=== PATIENT | male | born 1945 | race Caucasian/White ===

== ENCOUNTER 2020-10-15 11:38 | Emergency (ER) | payer MEDICARE, OTHER, SELFPAY ==
[2020-10-15 12:13] VITALS: BMI 28.5
--- NOTE | 2020-10-15 12:16 | XRR_ITS ---
PROCEDURE INFORMATION: Exam: XR Left Hand Exam date and time: 10/15/2020 12:16 PM Age: 75 years old Clinical indication: Injury or trauma; Other: Trailer hitch came down on hand today; Crushing; Left; Injury date: 10/15/20; Prior surgery; Surgery type: Carpal tunnel; Additional info: Crush injury to hand TECHNIQUE: Imaging protocol: XR Left hand. Views: 3 or more views. COMPARISON: No relevant prior studies available. FINDINGS: Bones/joints: There is no evidence for acute fracture or malalignment. Soft tissues: There is soft tissue injury adjacent to the left 2nd metacarpal head.No concerning radioopaque foreign bodies are identified. XR/XR hand LT min 3V* [id number] IMPRESSION: There is no evidence for acute fracture or malalignment.
--- NOTE | 2020-10-15 12:18 | W.ED.WOUNDLC ---
HPI - Wound/Laceration General: Chief Complaint: Wound/Laceration Stated Complaint: L hand LAC R hand pain Time Seen by Provider: 10/15/20 12:10 Source: patient Mode of arrival: ambulatory Limitations: no limitations History of Present Illness: HPI narrative: 75-year-old male had a tito under his camper and when he was trying to remove the tito the camper fell and landed on his hands. He has an abrasion to his right hand and feels that hand is ok. He however has a puncture wound to his left hand web space between the thumb and index finger. No other injuries Onset (ago): minute(s) (1) Extremity Location: Left: hand Place: outdoors Patient tetanus UTD: No Context: accidental Associated symptoms: Reports pain; Denies chills, fever(s), foreign body sensation, inability to move, nausea, numbness, syncope or vomiting Review of Systems General: Reports: 10 or more systems reviewed and unremarkable except in HPI and below Const: Denies: fever(s) or chills Card: Denies: syncope GI: Denies: nausea or vomiting Physical Exam Const: COMMON NORMALS: no acute distress, average body habitus, patient oriented x3, no limitations, healthy appearing, alert and well nourished HENMT: COMMON NORMALS: normocephalic, atraumatic and moist oral mucous membranes HEAD & SCALP: normocephalic and atraumatic Neck/C-Spine: COMMON NORMALS: no meningeal signs and no JVD Chest: COMMONS NORMALS: normal inspection of the chest and normal palpation of entire chest wall Resp: COMMON NORMALS: normal respiratory effort, No retractions, No use of accessory muscles, clear to auscultation bilaterally and percussion normal AUSCULTATION: clear to auscultation bilaterally PERCUSSION: percussion normal Cardio: COMMON NORMALS: no JVD, regular rate, regular rhythm, S1 normal heart sound present, S2 normal heart sound present, No gallops present (Cardio), No clicks present (Cardio), No murmurs present (Cardio), No rub (Cardio) and Peripheral pulses 2+ throughout RATE: regular rate RHYTHM: regular rhythm HEART SOUNDS: S1 normal heart sound present and S2 normal heart sound present PERIPHERAL PULSES: Peripheral pulses 2+ throughout GI: COMMON NORMALS: Normal to inspection, nondistended, normoactive bowel sounds present, Soft to palpation, non-tender, No hepatosplenomegaly present, no masses and no bruits PALPATION: Yes Soft to palpation and Yes No hepatosplenomegaly present Extremity: COMMON NORMALS: normal to inspection, full ROM, capillary refill normal, no calf tenderness and no pedal edema Neuro: COMMON NORMALS: patient oriented x3 SENSORIUM/ORIENTATION: Yes alert MENINGEAL SIGNS: Yes no meningeal signs Skin: COMMON NORMALS: no rashes or lesions noted, no wounds, turgor normal, no jaundice, no petechiae and no mottling GENERAL SKIN EXAM: no rashes or lesions noted and turgor normal TRAUMA: laceration (puncture wound with a 2 cm wound on the palmar surface and 0.5 cm dorsally.) irregular, puncture, motor nerve function intact and sensation intact and puncture (web space between thumb and index finger on the left) Procedures Laceration Laceration 1: Site: hand (palmar surface) Side (If applicable): left Size (cm): 4 Description: irregular Depth: involves muscle layer Local Anesthetic: lidocaine 1% Amount of anesthesia used (mL): 3 Pre-repair: wound explored and irrigated extensively Skin layer closed with: nylon Size (cm): 3-0 Number of sutures: 5 Technique: simple, interrupted Subcutaneous layer closed with: vicryl Size: 4-0 Number of sutures: 2 Technique: simple, interrupted Laceration 2: Site: hand (dorsal) Side (If applicable): left Size (cm): 1 Description: linear Depth: simple, single layer Local Anesthetic: lidocaine 1% Amount of anesthesia used (mL): 1 Pre-repair: wound explored and irrigated extensively Skin layer closed with: nylon Size (cm): 3-0 Number of sutures: 1 Technique: horizontal mattress Course Vital Signs: Vital signs: Vital Signs Pulse Rate 63 10/15/20 14:39 Respiratory Rate 18 10/15/20 14:39 Blood Pressure 123/72 10/15/20 14:39 Pulse Oximetry 95 10/15/20 14:39 MDM - Wound/Laceration MDM Narrative: Medical decision making narrative: 75-year-old male who had a camper tito fall in his hand and he sustained a laceration/puncture wound to his left hand. There was no bony involvement and the wounds were closed without complication. He is discharged home wound care instructions and he is to follow-up with his primary care provider for suture removal. Medical Records: Attestation: I reviewed the patient's medical records. Imaging Data^: Xray Ortho: Attestation: I personally reviewed and interpreted this imaging study as follows: Radiologist's impression: [facility] [place], [place] [address]BToi ReportSigned Patient: Leoncio Natarajan #: [id number]: 1945cct#:[id number]/Sex: 75 / MADM Date: 10/15/20Loc: ERRoom/Bed:Attending Dr: Ordering Provider/Ordering MD: Kalani Aguila MD, [facility] [place] Date of Service: 10/15/20 Procedure(s): XR hand LT min 3V* [id number] Accession Number(s): [id number] Report Number: [id number] PROCEDURE INFORMATION: Exam: XR Left Hand Exam date and time: 10/15/2020 12:16 PM Age: 75 years old Clinical indication: Injury or trauma; Other: Trailer hitch came down on hand today; Crushing; Left; Injury date: 10/15/20; Prior surgery; Surgery type: Carpal tunnel; Additional info: Crush injury to hand TECHNIQUE: Imaging protocol: XR Left hand. Views: 3 or more views. COMPARISON: No relevant prior studies available. FINDINGS: Bones/joints: There is no evidence for acute fracture or malalignment. Soft tissues: There is soft tissue injury adjacent to the left 2nd metacarpal head.No concerning radioopaque foreign bodies are identified. XR/XR hand LT min 3V* [id number] IMPRESSION: There is no evidence for acute fracture or malalignment. Dictated By:Alissa Sanchez MDSigned By:Alissa Sanchez MDSigned Date/Time:10/15/20 1423DD/ 1421 Discharge Plan Discharge Patient Disposition: Home Clinical Impression: Hand laceration Qualifiers: Encounter type: initial encounter Foreign body presence: without foreign body Laterality: left Qualified Code(s): S61.412A - Laceration without foreign body of left hand, initial encounter Puncture wound of hand Qualifiers: Encounter type: initial encounter Foreign body presence: without foreign body Laterality: left Qualified Code(s): S61.432A - Puncture wound without foreign body of left hand, initial encounter Crush injury of hand Qualifiers: Encounter type: initial encounter Laterality: left Qualified Code(s): S67.22XA - Crushing injury of left hand, initial encounter Condition: Stable Discharge Orders: Discharge ED (Routine); Ordered 10/15/20 Ordered By: Kalani Aguila Referrals: Rob Vasquez MD [Primary Care Provider] - 1-3 days Discharge Diet: Usual diet Discharge Activity: Limit activity as instructed Patient Instructions: Crush Injury, Suture Care (ED), Laceration (ED) Activity Restrictions/Additional Instructions: Return for any new or worsening symptoms. Follow-up with your primary care provider within 1 week. Sutures should be removed in 7 to 10 days. Keep the wound dressing on for the next 2 days and then take it off. After to cover the dressing clean the wound with soap and water every day and apply an antibiotic ointment to the wound. Coding Level of Care Code ED Sql S[employer] Ssis Developer for Wes Miramontes Exam Comprehensive
[2020-10-15] MEDS: tetanus-dipt-pertussis 0.5 mL SDV IM (12:32)
--- NOTE | 2020-10-15 13:00 | PC.NURSE ---
1300 betadine and sterile water soak to left hand
[2020-10-15 14:39] VITALS: BP 123/72; PULSE 63; RESP 18; O2SAT 95
== END 2020-10-15 14:35 | disposition home or self-care (01) ==
PROVIDERS: Emergency Provider Family Medicine; PCP Family Medicine
DX: S61.412A Laceration without foreign body of left hand, initial encounter (principal); S61.432A Puncture wound without foreign body of left hand, initial encounter; S67.22XA Crushing injury of left hand, initial encounter; W20.8XXA Other cause of strike by thrown, projected or falling object, initial encounter; Z23 Encounter for immunization
CPT/HCPCS: 12001; 12042; 73130; 90471; 90715; 99283